=== PATIENT | male | born 1960 | race Caucasian/White ===

== ENCOUNTER → 2020-05-05 | Outpatient (CLI) | payer BC ==
--- NOTE | 2020-05-05 14:09 | XR ---
Cervical spine HISTORY: M 79.609 6 views of the cervical spine There is a retrolisthesis grade 1 C5-C6. Loss of disc height is present at C5-6. There is multilevel facet arthropathy. Atherosclerotic calcifications present within the carotid arteries. Foraminal encr oachment is present bilaterally C5-6. IMPRESSION: Degenerative disc disease and facet arthropathy.
== END | disposition home or self-care (01) ==
LOC: RADXRMAIN 13:10
PROVIDERS: ATTEND Family Medicine
DX: M50.30 Other cervical disc degeneration, unspecified cervical region (principal); M47.812 Spondylosis without myelopathy or radiculopathy, cervical region
CPT/HCPCS: 72050

== ENCOUNTER → 2020-06-25 | Outpatient (CLI) | payer BC ==
--- NOTE | 2020-06-25 07:43 | MR ---
MRI CERVICAL SPINE: CLINICAL HISTORY: Neck pain. Diminished sensation in feet and hands are patient. TECHNIQUE: Multiplanar, multisequence imaging of the cervical spine is performed without IV contrast. COMPARISON: Outside cervical spine x-ray June 05, 2020 FINDINGS: Sagittal images of the cervical spine show the craniocervical junction to appear within nor mal limits. The cervical and upper thoracic spinal cord is normal in caliber and signal. Slight grad e 1 retrolisthesis of C5 on C6 with mild disc space narrowing at this level otherwise the vertebral b diana and intravertebral disk heights are normal. The bone marrow signal intensity is within normal li mits. Axial images C2-C3 level show right paracentral disc protrusion mildly facing anterior thecal sac axi al image 50. Patent bilateral neural foramina. Axial images at C3-C4 level shows some uncovertebral facet degenerative changes with broad-based righ t paracentral disc protrusion effacing anterior thecal sac, patent bilateral neural foramina. Axial images at C4-C5 level show central disc protrusion mildly effacing anterior thecal sac. Patent bilateral neural foramina. Axial images at C5-C6 level shows spondylolisthesis with broad-based posterior disc protrusion with u ncovertebral facet spurring, there is effacement of the anterior thecal sac and moderate to severe bi lateral neural foraminal narrowing axial image 25 for reference. Axial images at C6-C7 level shows a left paracentral disc protrusion mildly facing anterior thecal sa c, patent bilateral neural foramina. Axial images at C7-T1 level are within normal limits. IMPRESSION: Multilevel degenerative changes with greatest findings noted at C5-C6 level as detailed a tasneem.
== END | disposition home or self-care (01) ==
LOC: RADMRIMAIN 06:10
PROVIDERS: ATTEND Orthopaedic Surgery
DX: M47.812 Spondylosis without myelopathy or radiculopathy, cervical region (principal)
CPT/HCPCS: 72141

== ENCOUNTER → 2020-07-18 | Outpatient (CLI) | payer BC ==
[2020-07-18 13:25] LABS: Basophils % (A) 0 %; Eosinophils # (A) 0.2 k/uL (0-0.7); Eosinophils % (A) 2 %; HCT 44.1 % (39.0-53.0); HGB 13.9 gm/dL (13.0-17.5); Lymphocytes % (A) 18 %; MCH 30.4 pg (25.0-35.0); MCHC 31.5 g/dL (31.0-37.0); MCV 96.4 fL (80.0-100.0); Mean Platelet Volume 8.6; Monocytes # (A) 0.5 k/uL (0-1.0); Monocytes % (A) 5 %; Neutrophils % (A) 74 %; Platelet Count 152 k/uL (150-450); RBC 4.58 m/uL (4.30-5.90); RDW 14.2 % (11.5-15.5); WBC 10.9 k/uL (3.8-10.6)
== END | disposition home or self-care (01) ==
LOC: LABPAT 11:51
PROVIDERS: ATTEND Orthopaedic Surgery
DX: G56.01 Carpal tunnel syndrome, right upper limb (principal)
CPT/HCPCS: 36415; 80051; 85025

== ENCOUNTER 2020-07-30 09:33 | Day surgery (SDC) | payer BC ==
[2020-07-25 12:53] VITALS: BMI 41.5
[~2020-07-30 09:33] MED LIST: DEXAMETHASONE SOD PHOSPHATE 4 MG/ML 1 ML VIAL IV ONE; HYDROmorphone 0.5 MG/0.5 ML SYRINGE IVP PRN; LACTATED RINGERS 1,000 ML IV SCH; LIDOCAINE 1% (10MG/ML) FOR IV START INTRADERMA PRN; ONDANSETRON 4 MG/2 ML VIAL IVP ONE; Pre Op ABX Message 1 EACH MISC MISCELLANE ONE
[2020-07-30 10:02] VITALS: TEMP 97
--- NOTE | 2020-07-30 10:15 | P.HPOR ---
History of Present Illness H&P Date: 07/10/20 Chief Complaint: R CTS This 59 year old male presents today with bilateral upper extremity numbness for 3 months. He denies any specific injury. He states that his symptoms are worse on his right side. . 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 H e notes symptoms at night. He denies any significant neck pain. Patient is not taking any medication for pain. Patient is ambulating independently. He denies trouble with fine motor skills. Denies unstady gait. states no f/c/sob/cp at thie time. He represented after EMG and found to have Severe R CTS. Review of Systems 14 points review of systems completed and as stated in HPI, all other systems reviewed are negative. Past Medical History Past Medical History: Cancer, Hypertension Additional Past Medical History / Comment(s): MELANOMA, STATES NUMBNESS IN HANDS AND BURNING PAIN UP ARM., CERVICAL DISC DEGENERATION History of Any Multi-Drug Resistant Organisms: None Reported Past Surgical History: Heart Catheterization, Orthopedic Surgery Additional Past Surgical History / Comment(s): RIGHT ANKLE SURGERY X5 (HARDWARE REMOVED), LEFT ANKLE SURGERY X2, HEART CATH 2007 ([facility]), CYST ON TESTICLE , NODE DISECTION RIGHT LOWER EXTREMITY. Past Anesthesia/Blood Transfusion Reactions: No Reported Reaction, Motion Sickness Past Psychological History: No Psychological Hx Reported Smoking Status: Former smoker Past Alcohol Use History: Occasional Additional Past Alcohol Use History / Comment(s): QUIT SMOKING AGE 19, SMOKED 1 PPD . , STARTED AGE 15. Past Drug Use History: None Reported - Past Family History Mother Family Medical History: No Reported History Medications and Allergies Home Medications Medication Instructions Recorded Confirmed Type Aspirin [Adult Low Dose Aspirin EC] 81 mg PO DAILY 07/25/20 07/30/20 History Folic Acid 1 mg PO DAILY 07/25/20 07/30/20 History Metoprolol Succinate (ER) [Toprol 25 mg PO DAILY 07/25/20 07/30/20 History Xl] Multivit-Min/Folic/Vit K/Lycop 1 each PO DAILY 07/25/20 07/30/20 History [Men's Multivitamin Tablet] amLODIPine [Norvasc] 5 mg PO DAILY 07/25/20 07/30/20 History lisinopriL 20 mg PO DAILY 07/25/20 07/30/20 History Allergies Allergy/AdvReac Type Severity Reaction Status Date / Time No Known Allergies Allergy Verified 07/30/20 09:59 Physical Examination Osteopathic Statement: *. No significant issues noted on an osteopathic structural exam other than those noted in the History and Physical/Consult. PHYSICAL EXAM: GEN: AOX3, NAD VSS Inspection: [appears well and well nourished] Palpation: [no tennis palpation of the cervical spine pain with motion of the cervical spine] Motor: [5]/5 shoulder abd/EF/EE/WF/intrinsics her strength is decreased bilaterally [5]/5 DF/PF/EHL/FHL/HF/KE/KF Reflexes: 2/4 DTR all upper and LE Sensation intact to light touch in C5-T1 as well as L2-S1 distribution Cardoza's: [negative] Clonus: [negative] Babinski: [negative] cranial nerves II through XII are grossly intact Assessment and Plan Assessment: right carpal tunnel syndrome left carpal tunnel syndrome Plan: Orthopedic Surgery Risk Review Fred Dyson is a 60-year-old male presenting for evaluation of bilateral upper extremity pain as well as hand pain. It was my pleasure to have seen and examined Fred Dyson. In our visit today we have had a chance to go over subjective complaints, physical examination findings and treatments including the natural course history without intervention and various interventional options. His imaging demonstrates mild spondylotic disease at C5 6. No severe stenosis and myelomalacia. Right carpal tunnel syndrome is noted on EMG. On physical exam, Fred Dyson demonstraes positive Tinel's sign as well as carpal compression sign at the right carpal tunnel worse than the left, which is NV intact at this time. I have explained to the patient that this fracture needs stabilization. Based on the patients imaging, physical exam, and the rapid progression and disabling nature of her symptoms, at this time I recommend surgery in the form or a: Right carpal tunnel release I discussed the risk and benefits of this procedure at length with Fred Dyson. Questions were invited and answered, and the patient wishes to proceed as outlined below. Currently, I am recommendin. Right carpal tunnel release 2. Review of surgical risks and benefits as well as an educational packet on the proposed surgical procedure. Risks: All surgical procedures come with inherent risks, including those related to positioning, anesthesia, intraoperative findings, and postoperative co mplications. It is important to understand that surgery does not come with any guarantee of a successful outcome as complications and adverse events are always possible. The patient was given a handout discussing the surgical procedure and risks associated with the intervention, both of which were discussed with the patient. These risks include but are not limited to the following: - Experiencing same, different or even worse symptoms compared to before surgery. - Requiring further surgery or other forms of treatment presently or at some time in the future . - On an extreme but fortunately relatively rare basis severe complication such as blindness, stroke, heart attack, temporary and/or permanent nerve injury, paralysis, coma, or may occur, sometimes without known explanation. - Surgical complications may include but are not limited to risk of infection, fluid accumulation in the surgical dissection site, including a seroma or hematoma, that requires additional surgery, wound drainage, bleeding, new numbness or weakness, vision changes/loss, spinal fluid leakage, non-healing and/or infected incision, headaches, difficulty or inability to swallow, hoarseness, hemopneumothorax, pneumothorax, injury to nerves, spinal cord, blood vessels, lymphatics or other vital organs (i.e., bowel injury, injury to the great vessels); heterotopic bone formation; complications related to the hardware such as screws, rods, including misplaced hardware, device failure, hardware fracture/breakage, or hardware loosening; retained surgical instrumentations or devices and the need for further surgery. - Medical risks of the planned surgery include but are not limited to generalized Infections to the whole body or local areas outside of the surgical site (sepsis), heart attack, bleeding, anaphylaxis, meningitis, seizure, epilepsy, hearing loss, burn worthy, laceration of the head or other areas of the body, bruising, hypersensitivity of the skin, bladder over distension; allergic reaction; shoulder injury related to positioning; fat, blood and air clots to other areas of the body like heart, lungs, brain; failure of internal organs s uch as lungs, kidneys, liver and excessive bleeding. If blood transfusions are necessary, note that transfusions may cause intolerance reactions such as anaphylaxis or other complex reactions. Despite best efforts, the results of surgery might not heal in terms of bone, soft tissues such as skin, fascia, ligaments, and joints. [facility] is an educational center that serves as a training facility for physician assistants, nurses, orthopedic residents and fellows. Residents are physicians who are completing their surgical intensive training following medical school. They assist in the operating room with direct supervision of the attending surgeons. [place] are surgeons who have completed their training and eligible for board certification. They have opted for an elective year of more specialized training in their field. They assist in the operating room under the supervision of the attending surgeons. Physician assistants are medically trained surgical providers who function in the outpatient, inpatient, and operating room setting under the direct supervision of the attending surgeon. [facility] has multiple operating rooms with single and overlapping rooms running daily. They currently function under the required guidelines as produced by the [facility] with regards to the overlapping rooms and will continue to comply with changes to this policy as they occur. The requirements include and are complied with as follows: (1) the critical portions of the overlapping rooms will not occur at the same time, (2) the attending yara sician will be physically present during the critical portions of the procedure and immediately available during the entire case, and (3) a back-up attending is designated should the primary attending not be immediately available. The patient has had a chance to review all the listed information, has been given print outs detailing this information, and has had all his/her questions answered to their satisfaction. It was my pleasure to have seen and examined Fred Dyson. In our visit today we have had a chance to go over my understanding of our patient's current condition, the natural course history without intervention and various interventional options. Questions were invited and answered, and the patient wishes to proceed as outlined above. I have seen and examined the patient for 25 minutes and we have spent more than 50% of the time in repeat and detailed counseling about the patient's condition, its natural course history with out and as much as can be predicted with surgery and re-review of various surgical treatment options. In conclusion, Fred Dyson requested we proceed with the above suggested surgery and are willing to accept risks and limitations of the suggested surgery as nature of the disease process and our best attempts at treatment for the condition. Thank you again for allowing us to be part of your patient's care. Please don't hesitate to contact me if you have any further questions. Signed and authenticated by: Erik Lopez DO [facility]imally [facility]vasive Spine [facility] [address] [facility], [address] [address]
[2020-07-30] MEDS ORDERED: fentaNYL (PF) 50 MCG/ML 2 ML AMP ONE (10:54)
[2020-07-30] MEDS ORDERED: LIDOCAINE 1% INJ 10MG/ML (20 ML MDV) ONE ×2 (10:54)
[2020-07-30] MEDS ORDERED: KETOROLAC 15 MG/ML 1 ML VIAL ONE (10:54)
[2020-07-30] MEDS ORDERED: MIDAZOLAM 2 MG/2 ML VIAL ONE (10:54)
[2020-07-30] MEDS ORDERED: PROPOFOL 10 MG/ML 20 ML VIAL IV ONE (10:54)
[2020-07-30] MEDS ORDERED: BUPIVACAINE (PF) 0.5% 30 ML VIAL SQ ONE (11:14)
[2020-07-30] MEDS ORDERED: LIDOCAINE 1% INJ 10MG/ML (20 ML MDV) SQ ONE (11:14)
[2020-07-30 11:56] VITALS: RESP 16
[2020-07-30 12:09] VITALS: BP 129/83; PULSE 60
--- NOTE | 2020-07-30 14:43 | P.OP ---
Date of Procedure: 07/30/20 Preoperative Diagnosis: RIGHT carpal tunnel syndrome Postoperative Diagnosis: Same Procedure(s) Performed: Right Carpal tunnel release Implants: None Anesthesia: local Surgeon: Erik Lopez Estimated Blood Loss (ml): 10 IV fluids (ml): 400 Urine output (ml): 0 Pathology: none sent Condition: stable Disposition: PACU Indications for Procedure: 60 yo male with symptoms of RIGHT hand pain, numbness tingling for several months refractory to conservative measures. EMG showed CTS on RIGHT>L and MRI of C spine shows mild C5-6 disc bulging. Pt elected to have CTR due to symptoms and no neck pain at this time. He was evaluated in the office several times and at pre op appointments was comfortable with proceeding to surgery. Operative Findings: Median nerve compression at the Carpal tunnel on the RIGHT. Description of Procedure: The patient was seen and examined in the preoperative area. All preoperative protocols were followed. Informed consent was obtained risks and benefits of the procedure were discussed at length. Risks including bleeding infection damage to the surrounding tissue and risk of reoperation were discussed with the patient. Risk of anesthesia up to and including was a discussed with the patient. These are outlined in the risk reviewed. They were willing to accept these risks and all of the risks of surgery. The patient was given a weight- based dose of antibiotics in the form of 2 g Ancef IVPB 1. The patient was seen and evaluated by the anesthesia team who deemed them fit for surgery. The site was marked, the patient was willing to proceed with the procedure. The patient was transferred to the operative suite by the Department of anesthesia. There were then drifted off to sleep by the department of anesthesia and sedation with local anesthetic of the right hand anesthesia was used. Once adequate anesthesia had been obtained the patient was carefully transferred to the operative bed. All bony prominences were padded accordingly. SCDs were placed on the nonoperative lower extremities. Arms were well padded. And right arm was exposed target was placed on the patient's right upper arm and well-padded 10:15 misplaced roundness. Arm placed on arm board on the right Preoperative briefing was done with the operative team and everyone was ready for the procedure to start. The patients right arm and hand was then prepped and draped in the normal sterile fashion. Timeout was then performed and all parties in agreement with the procedure to be performed. Skin marker was used to álvaro an incision over the carpal tunnel and the patient's right hand ulnar aspect of the right ring finger proximal to Bob's cardinal line. Esmarch was then placed and tourniquet was inflated to 250 mmHg after exsanguination. Skin knife was then used to dissect over this is a previously by marked incision down to identify the palmar fascia. Blunt dissection was then taken down to the transverse carpal ligament which was identified. Inside knife was then used to incise a channel carpal ligament longitudinally. The median nerve was identified. Tenotomy was then used to complete the dissection distally of the carpal ligament release it taking care to protect the palmar arch. This was repeated proximally until complete release of the carpal ligament had been achieved. Median nerve was then inspected and was in good health. The wound was copiously irrigated with normal sterile saline tourniquet was dropped after 9 minutes and any superficial bleeding was cauterized. Wound was then closed with 3-0 Vicryl subcuticular region followed by 3-0 nylon in the skin wound edges approximated very well with no complications. Was then cleaned and dressed sterilely with sterile Adaptic 4 x 4's web roll the patient was placed in a volar splint which was well-padded well molded. This was then overwrapped with an Adán wrap. The patient was then transferred back to their hospital bed. There were awakened by department of anesthesia having tolerated the procedure very well with no complications. The patient was then transported to the postoperative care unit in stable condition.
== END 2020-07-30 12:30 | disposition home or self-care (01) ==
LOC: OR 09:33
PROVIDERS: ATTEND Orthopaedic Surgery
DX: G56.03 Carpal tunnel syndrome, bilateral upper limbs (principal); M50.222 Other cervical disc displacement at C5-C6 level; I10 Essential (primary) hypertension; Z97.2 Presence of dental prosthetic device (complete) (partial); Z79.82 Long term (current) use of aspirin; Z79.899 Other long term (current) drug therapy; Z87.891 Personal history of nicotine dependence; Z85.820 Personal history of malignant melanoma of skin; Z98.890 Other specified postprocedural states
CPT/HCPCS: 93005; 64721; J2250; J1100; J2405; J2001; J3010; J1885; J2704

== ENCOUNTER 2021-01-19 15:17 | Emergency (ER) | payer BC ==
[2021-01-19 15:28] VITALS: TEMP 98.9
[2021-01-19] MEDS ORDERED: methylPREDNISolone SOD SUCCI 125 MG/2 ML VIAL IV STA (15:38)
[2021-01-19] MEDS ORDERED: diphenhydrAMINE 50 MG/ML 1 ML VIAL IVP STA (15:38)
[2021-01-19] MEDS ORDERED: FAMOTIDINE 20 MG/2 ML VIAL IV STA (15:38)
[2021-01-19] MEDS ORDERED: SODIUM CHLORIDE 0.9% 1,000 ML IV STA (15:38)
--- NOTE | 2021-01-19 16:06 | ED ---
Allergic Reaction HPI - General Chief complaint: Allergic Reaction Stated complaint: Stung by bee,itchy Time Seen by Provider: 01/19/21 15:38 Source: patient Mode of arrival: wheelchair Limitations: no limitations - History of Present Illness Initial Comments: Patient is a 60-year-old male presenting to the emergency Department with complaints of an ALLERGIC reaction. Patient states about 45 minutes prior to arrival, he was stung by a bee on the back of his left upper arm. He started having intense itching all over and now has some mildly swollen lips and swollen tonsil he came to the ER. He has never had this type of reaction before. He denies any chest pain or shortness of breath, he denies any trouble breathing at this time. He feels extremely itchy and uncomfortable. He denies any nausea or vomiting at this time. He has no further complaints. - Related Data Home Medications Medication Instructions Recorded Confirmed Aspirin [Adult Low Dose Aspirin EC] 81 mg PO DAILY 07/25/20 07/30/20 Folic Acid 1 mg PO DAILY 07/25/20 07/30/20 Metoprolol Succinate (ER) [Toprol 25 mg PO DAILY 07/25/20 07/30/20 Xl] Multivit-Min/Folic/Vit K/Lycop 1 each PO DAILY 07/25/20 07/30/20 [Men's Multivitamin Tablet] amLODIPine [Norvasc] 5 mg PO DAILY 07/25/20 07/30/20 lisinopriL 20 mg PO DAILY 07/25/20 07/30/20 Previous Rx's Medication Instructions Recorded Acetaminophen-Codeine 300-30mg 1 tab PO Q4H PRN 3 Days #18 tablet 07/30/20 [Tylenol w/codeine #3] EPINEPHrine (Auto Inject) [Epipen] 0.3 mg IM ONCE PRN #1 pen 01/19/21 predniSONE 50 mg PO DAILY #5 tab 01/19/21 Allergies Allergy/AdvReac Type Severity Reaction Status Date / Time No Known Allergies Allergy Verified 01/19/21 15:28 Review of Systems ROS Statement: Those systems with pertinent positive or pertinent negative responses have been documented in the HPI. ROS Other: All systems not noted in ROS Statement are negative. Past Medical History Past Medical History: Hypertension History of Any Multi-Drug Resistant Organisms: None Reported Past Surgical History: Orthopedic Surgery Past Psychological History: No Psychological Hx Reported Smoking Status: Never smoker Past Alcohol Use History: Occasional Past Drug Use History: None Reported General Exam - General Exam Comments Initial Comments: GENERAL: Patient is well-developed and well-nourished. Patient is nontoxic and in mild distress. HEAD: Atraumatic, normocephalic. EYES: Pupils equal round and reactive to light, extraocular movements intact, sclera anicteric, conjunctiva are normal. Eyelids were unremarkable. ENT: TMs normal, nares patent, oropharynx clear without exudates. Moist mucous membranes. Mild enlargement of his tongue, very mild lip swelling. NECK: Normal range of motion, supple without lymphadenopathy or JVD. LUNGS: Unlabored respirations. Breath sounds clear to auscultation bilaterally and equal. No wheezes rales or rhonchi. HEART: Slightly tachycardia rate and rhythm without murmurs, rubs or gallops. ABDOMEN: Soft, nontender, normoactive bowel sounds. No guarding, no rebound. No masses appreciated. : Deferred MUSCULOSKELETAL: Normal extremities with adequate strength and normal range of motion, no pitting or edema. No clubbing or cyanosis. NEUROLOGICAL: Patient is alert and oriented x 3. Normal speech, normal gait. PSYCH: Normal mood, normal affect. SKIN: Warm, Dry, normal turgor. Patient has developing hives noted to the bilateral arms, lower legs, and on his neck. Limitations: no limitations Course Vital Signs 01/19/21 15:24 Temperature 98.9 F Pulse Rate 103 H Respiratory 25 H Rate Blood Pressure 144/101 O2 Sat by Pulse 96 Oximetry Medical Decision Making - Medical Decision Making Patient is a 60-year-old male presenting for an ALLERGIC reaction to a bee sting that happened about 45 minutes prior to arrival. He's never had this sort of reaction. He is complaining of intense itching, hives and some mild swelling of his lip and tongue. He is in no acute distress, no trouble breathing, no nausea or vomiting. Patient was quickly given Benadryl, so Medrol and Pepcid. Patient was reexamined about 30 minutes later, he reports improvement of symptoms, hives are decreasing. He is in no acute distress. Patient was observed in the ER for proximally 2 hours, he reports continued improvement in his symptoms, no acute distress, no trouble breathing, lip swelling is decreasing. Patient is stable for discharge. I did recommend continuing with Benadryl at nighttime for any further itching or hives. I will continue him on steroids and prescribe him an EpiPen. Patient and patient's are in agreement with this plan of care. Patient is stable for discharge. Patient is in agreement with this plan of care. Return parameters were discussed with the patient and they verbalized understanding. Case discussed with Dr. Avelar. Disposition Clinical Impression: Allergic reaction to insect sting Disposition: HOME SELF-CARE Condition: Stable Instructions (If sedation given, give patient instructions): Urticaria (ED) Additional Instructions: Please return to the Emergency Department if symptoms worsen or any other concerns. Please continue steroids, starting tomorrow. May take Benadryl every 8 hours for itching or worsening hives. Also prescribed an EpiPen for any future bee stings to use as needed for severe reaction. Please follow-up with primary care physician. Prescriptions: EPINEPHrine (Auto Inject) [Epipen] 0.3 mg IM ONCE PRN #1 pen PRN Reason: Anaphylaxis predniSONE 50 mg PO DAILY #5 tab Is patient prescribed a controlled substance at d/c from ED?: No Referrals: Austen Hooper DO [Primary Care Provider] - 1-2 days Time of Disposition: 17:18
[2021-01-19 17:27] VITALS: BP 136/83; PULSE 71; RESP 18
== END 2021-01-19 17:35 | disposition home or self-care (01) ==
LOC: EC 15:17
DX: T63.441A Toxic effect of venom of bees, accidental (unintentional), initial encounter (principal); I10 Essential (primary) hypertension; Z79.52 Long term (current) use of systemic steroids; Z79.82 Long term (current) use of aspirin; Z79.899 Other long term (current) drug therapy
CPT/HCPCS: 99282; 96374; 96375 ×2; 96361 ×2; J1200; J2930

== ENCOUNTER → 2023-09-14 | Outpatient (CLI) | payer OTHER ==
--- NOTE | 2023-09-14 11:54 | US ---
EXAMINATION TYPE: US bladder DATE OF EXAM: 09/14/2023 COMPARISON: NONE CLINICAL INDICATION: Male, 63 years old with history of R82.89 OTHER ABN FINDINGS ON CYTOLOGY AND HIS TOLOGY; gross hematuria last week, started antibiotic and it is improving, h/o renal stones, patient feels he passed renal stone yesterday TECHNIQUE: Multiple sonographic images of the bladder are obtained. FINDINGS: CANS VACUUM TESTER NOTES: Bladder scan produces 2.8 x 2.7cm cluster of stones noted midline, twinkle artifac t seen Color Doppler performed to assess ureteral jets. Bilateral Jets seen: yes IMPRESSION: Complex lesion with cluster of stones near the base of bladder. Not entirely excluded associated poly poid soft tissue mass as part of this complex
== END | disposition home or self-care (01) ==
LOC: RADUSWWP 10:24
PROVIDERS: ATTEND Family Medicine
DX: N21.0 Calculus in bladder (principal); N28.89 Other specified disorders of kidney and ureter; R82.89 Other abnormal findings on cytological and histological examination of urine; R31.0 Gross hematuria
CPT/HCPCS: 76857

== ENCOUNTER → 2023-09-23 | Outpatient (CLI) | payer MEDICARE ==
[2023-09-23 11:36] LABS: African American GFR (CKD) >90 (>60 ml/min/1.73 sqM); Blood Urea Nitrogen 21 mg/dL (9-20); Non-African American GFR(CKD) >90 (>60 ml/min/1.73 sqM)
--- NOTE | 2023-09-26 10:26 | CT ---
EXAMINATION TYPE: CT urogram wo/w con CT DLP: 5039.6 mGycm, Automated exposure control for dose reduction was used. DATE OF EXAM: 09/23/2023 12:32 PM COMPARISON: . CT abdomen pelvis most recent from CLINICAL INDICATION:Male, 63 years old with history of R31.0 GROSS HEMATURIA; PHH, gross hematuria TECHNIQUE: Urogram with imaging of the abdomen and pelvis. Coronal and sagittal reformats were performed. 2D and 3D reconstructions are performed to assist visualization of the urinary tract on a separate workstat ion. Contrast used:100 mL of Isovue 300 without and with IV Contrast, Oral contrast used: None. FINDINGS: LOWER CHEST: No significant findings. GENITOURINARY: RIGHT KIDNEY AND URETER: No calculi. No hydronephrosis or hydroureter. Several tiny type I Bosniak No solid renal mass or other lesions. No urothelial lesions: no filling defect, dilation, stricture o r wall thickening. LEFT KIDNEY AND URETER: No calculi. No hydronephrosis or hydroureter. Several small Bosniak 1 and Olayinka niak 2 renal cysts. No solid renal mass or other lesions. No urothelial lesions: no filling defect, d ilation, stricture or wall thickening. URINARY BLADDER: Ureteral jets are seen. Estimated 2 cm urinary bladder wall mass is identified in th e superior margin of the bladder. REPRODUCTIVE: Unremarkable. ABDOMEN LIVER: Unremarkable. GALLBLADDER AND BILE DUCTS: Unremarkable PANCREAS: Unremarkable. SPLEEN: Unremarkable. ADRENAL GLANDS: Unremarkable. STOMACH AND BOWEL: Unremarkable. No evidence of bowel obstruction. PERITONEUM: No evidence of pneumoperitoneum, free fluid, or adenopathy. VASCULATURE: No evidence of aortic aneurysm. MUSCULOSKELETAL: No acute osseous abnormalities LYMPH NODES: No gross evidence for lymphadenopathy. SOFT TISSUE/ABDOMINAL WALL: Unremarkable IMPRESSION: Suspicious for 2 cm bladder wall mass, potential transitional cell carcinoma No evidence of urolithiasis or renal/urothelial neoplasm. Small benign renal cysts which require no follow-up
== END | disposition home or self-care (01) ==
LOC: RADCTMAIN 10:44
PROVIDERS: ATTEND Urology
DX: N28.1 Cyst of kidney, acquired (principal); R31.0 Gross hematuria
CPT/HCPCS: 82565; 84520; 74178; 36415; 74400; Q9967

== ENCOUNTER 2023-11-05 18:39 | Emergency (ER) | payer MEDICARE ==
[2023-11-05 19:17] VITALS: TEMP 98.6
--- NOTE | 2023-11-05 19:32 | ED ---
General Adult HPI - General Chief complaint: Shortness of Breath Stated complaint: Difficulty breathing, pain when breathing Time Seen by Provider: 11/05/23 18:58 Source: patient Mode of arrival: wheelchair Limitations: no limitations - History of Present Illness Initial comments: This patient is a 63-year-old man who arrives to have evaluation for pleuritic right-sided chest pain that has been going on and getting progressively worse for the past 2 days. The patient reports on the day prior to developing this he had a cystoscopic resection of a bladder tumor at [facility]. The patient then noticed that he was having pain when he tried to take a deep breath. The pain seems to be in the right thoracic mid back and also rating around the side. It is worse with taking deep breath, better if he does not breathe deeply. He has not noted fever or chills. He does have occasional nonproductive cough. The patient does have indwelling catheter and has not noted a change in urine, which has been clear since the procedure. No nausea or vomiting. No diaphoresis. Onset/Timin -: days(s) Location: chest, back Radiation: non-radiation Quality: stabbing, aching Consistency: intermittent Improves with: none Worsens with: other (Aspiration) Associated Symptoms: cough Treatments Prior to Arrival: none - Related Data Home Medications Medication Instructions Recorded Confirmed Folic Acid 1 mg PO DAILY 07/25/20 11/18/23 Metoprolol Succinate (ER) [Toprol 25 mg PO DAILY 07/25/20 11/18/23 Xl] amLODIPine [Norvasc] 5 mg PO DAILY 07/25/20 11/18/23 lisinopriL 20 mg PO DAILY 07/25/20 11/18/23 Acetaminophen Tab [Tylenol Tab] 500 mg PO Q4H PRN 11/05/23 11/18/23 Sennosides [Senokot] 17.2 mg PO DAILY 11/05/23 11/18/23 allopurinoL [Zyloprim] 100 mg PO DAILY 11/05/23 11/18/23 Aspirin EC [Ecotrin Low Dose] 81 mg PO DAILY 11/18/23 11/18/23 Previous Rx's Medication Instructions Recorded Ibuprofen [Motrin] 600 mg PO Q8HR PRN #20 tab 11/05/23 Allergies Allergy/AdvReac Type Severity Reaction Status Date / Time No Known Allergies Allergy Verified 11/18/23 19:51 Review of Systems ROS Statement: Those systems with pertinent positive or pertinent negative responses have been documented in the HPI. ROS Other: All systems not noted in ROS Statement are negative. Constitutional: Denies: fever, chills, weakness Respiratory: Reports: cough, dyspnea Cardiovascular: Reports: as per HPI, chest pain. Denies: orthopnea, edema, syncope Gastrointestinal: Denies: abdominal pain, nausea, vomiting Genitourinary: Denies: dysuria, hematuria Musculoskeletal: Reports: as per HPI, back pain Skin: Denies: rash Neurological: Denies: headache, weakness, numbness Past Medical History Past Medical History: Hypertension History of Any Multi-Drug Resistant Organisms: None Reported Past Surgical History: Orthopedic Surgery Additional Past Surgical History / Comment(s): kidney tumor removal Past Psychological History: No Psychological Hx Reported Smoking Status: Never smoker Past Alcohol Use History: Occasional Past Drug Use History: None Reported General Exam Limitations: no limitations General appearance: alert, in no apparent distress Head exam: Present: atraumatic, normocephalic Eye exam: Present: normal appearance. Absent: scleral icterus, conjunctival injection Neck exam: Present: normal inspection Respiratory exam: Present: normal lung sounds bilaterally, other (Patient is splinting his breathing). Absent: respiratory distress, wheezes, rales, rhonchi, stridor, chest wall tenderness, accessory muscle use Cardiovascular Exam: Present: regular rate, normal rhythm, normal heart sounds. Absent: systolic murmur, diastolic murmur, rubs, gallop GI/Abdominal exam: Present: soft. Absent: distended, tenderness, guarding, rebound, rigid, mass Extremities exam: Present: normal inspection, normal capillary refill. Absent: pedal edema, calf tenderness Back exam: Present: normal inspection. Absent: CVA tenderness (R), CVA tenderness (L) Neurological exam: Present: alert Skin exam: Present: warm, dry, intact, normal color. 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 sent in by a medical professional or institution (, PA, RESEARCH PHLEBOTOMIST, urgent care, hospital, or snf...) When possible be specific @ -[No] Did you speak to anyone other than the patient for history (EMS, parent, family, police, friend...)? What history was obtained from this source @ -[No] Did you review nursing and triage notes (agree or disagree)? Why? @ -[I reviewed and agree with nursing and triage notes] Were old charts reviewed (outside hosp., previous admission, EMS record, old EKG, old radiological studies, urgent care reports/EKG's, snf records)? Report findings @ -[No old charts were reviewed] Differential Diagnosis (chest pain, altered mental status, abdominal pain women, abdominal pain men, vaginal bleeding, weakness, fever, dyspnea, syncope, headache, dizziness, GI bleed, back pain, seizure, CVA, palpatations, mental health, musculoskeletal)? @ -[Differential Chest Pain: Stable Angina, Unstable Angina, STEMI, NSTEMI Aortic Dissection, Pneumothorax, Musculoskeletal, Esophageal Spasm GERD, Cholecystitis, Pancreatitis, Zoster, this is not meant to be an all-inclusive list. EKG interpreted by me (3pts min.). @ -[I interpreted as above] X-rays interpreted by me (1pt min.). @ -[None done] CT interpreted by me (1pt min.). @ -I interpreted as above U/S interpreted by me (1pt. min.). @ -[None done] What testing was considered but not performed or refused? (CT, X-rays, U/S, labs)? Why? @ -[None] What meds were considered but not given or refused? Why? @ -[None] Did you discuss the management of the patient with other professionals (professionals i.e. , PA, RESEARCH PHLEBOTOMIST, lab, RT, psych nurse, social work coordinator, professor of communication, teacher, railroad police officer, shoe caser)? Give summary @ -[No] Was smoking cessation discussed for >3mins.? @ -[No] Was critical care preformed (if so, how long)? @ -[No] Were there social determinants of health that impacted care today? How? (Homelessness, low income, unemployed, alcoholism, drug addiction, transportation, low edu. Level, literacy, decrease access to med. care, correction, rehab)? @ -[No] Was there de-escalation of care discussed even if they declined (Discuss DNR or withdrawal of care, Hospice)? DNR status @ -[No] What co-morbidities impacted this encounter? (DM, HTN, Smoking, COPD, CAD, Cancer, CVA, ARF, Chemo, Hep., AIDS, mental health diagnosis, sleep apnea, morbid obesity)? @ -[History of cancer Was patient admitted / discharged? Hospital course, mention meds given and route, prescriptions, significant lab abnormalities, going to OR and other pertinent info. @ -[Patient is 63-year-old man presenting to have evaluation of pleuritic chest pain. Given the history of cancer, the patient had CT scan of the chest that is negative for acute pulmonary embolism. Discussed appropriate further care and follow-up as well as return parameters. Discussed the incidental finding of splenic aneurysm patient to have follow-up related. Undiagnosed new problem with uncertain prognosis? @ -[No] Drug Therapy requiring intensive monitoring for toxicity (Heparin, Nitro, Insu melvina, Cardizem)? @ -[No] Were any procedures done? @ -[No] Diagnosis/symptom? @ -[Acute pleuritis Acute, or Chronic, or Acute on Chronic? @ -[Acute Uncomplicated (without systemic symptoms) or Complicated (systemic symptoms)? @ -[Uncomplicated Side effects of treatment? @ -[No] Exacerbation, Progression, or Severe Exacerbation? @ -[No] Poses a threat to life or bodily function? How? (Chest pain, [place], [place], pneumonia, PE, COPD, DKA, ARF, appy, cholecystitis, CVA, Diverticulitis, Homicidal, Ambrosio icidal, threat to staff... and all critical care pts) @ -[No] - Lab Data Result diagrams: 11/05/23 19:30 11/05/23 19:30 Lab Results 11/05/23 11/05/23 11/05/23 Range/Units 19:30 19:30 19:30 WBC 11.8 H (3.8-10.6) k/uL RBC 5.19 (4.30-5.90) m/uL Hgb 15.5 (13.0-17.5) gm/dL Hct 48.4 (39.0-53.0) % MCV 93.2 (80.0-100.0) fL MCH 29.8 (25.0-35.0) pg MCHC 32.0 (31.0-37.0) g/dL RDW 13.6 (11.5-15.5) % Plt Count 171 (150-450) k/uL MPV 9.6 Neutrophils % 71 % Lymphocytes % 19 % Monocytes % 7 % Eosinophils % 2 % Basophils % 0 % Neutrophils # 8.4 H (1.3-7.7) k/uL Lymphocytes # 2.2 (1.0-4.8) k/uL Monocytes # 0.9 (0-1.0) k/uL Eosinophils # 0.2 (0-0.7) k/uL Basophils # 0.0 (0-0.2) k/uL PT 11.2 (10.0-12.5) sec INR 1.0 (<1.2) APTT 25.1 (22.0-30.0) sec Sodium 143 (137-145) mmol/L Potassium 4.0 (3.5-5.1) mmol/L Chloride 110 H (98-107) mmol/L Carbon Dioxide 23 (22-30) mmol/L Anion Gap 10 mmol/L BUN 21 H (9-20) mg/dL Creatinine 0.78 (0.66-1.25) mg/dL Est GFR (CKD-EPI)AfAm >90 (>60 ml/min/1.73 sqM) Est GFR (CKD-EPI)NonAf >90 (>60 ml/min/1.73 sqM) Glucose 107 H (74-99) mg/dL Calcium 9.4 (8.4-10.2) mg/dL Magnesium 1.9 (1.6-2.3) mg/dL Total Bilirubin 0.8 (0.2-1.3) mg/dL AST 27 (17-59) U/L ALT 34 (4-49) U/L Alkaline Phosphatase 85 (38-126) U/L Troponin I (0.000-0.034) ng/mL Total Protein 7.4 (6.3-8.2) g/dL Albumin 4.5 (3.5-5.0) g/dL 11/05/23 Range/Units 19:30 WBC (3.8-10.6) k/uL RBC (4.30-5.90) m/uL Hgb (13.0-17.5) gm/dL Hct (39.0-53.0) % MCV (80.0-100.0) fL MCH (25.0-35.0) pg MCHC (31.0-37.0) g/dL RDW (11.5-15.5) % Plt Count (150-450) k/uL MPV Neutrophils % % Lymphocytes % % Monocytes % % Eosinophils % % Basophils % % Neutrophils # (1.3-7.7) k/uL Lymphocytes # (1.0-4.8) k/uL Monocytes # (0-1.0) k/uL Eosinophils # (0-0.7) k/uL Basophils # (0-0.2) k/uL PT (10.0-12.5) sec INR (<1.2) APTT (22.0-30.0) sec Sodium (137-145) mmol/L Potassium (3.5-5.1) mmol/L Chloride (98-107) mmol/L Carbon Dioxide (22-30) mmol/L Anion Gap mmol/L BUN (9-20) mg/dL Creatinine (0.66-1.25) mg/dL Est GFR (CKD-EPI)AfAm (>60 ml/min/1.73 sqM) Est GFR (CKD-EPI)NonAf (>60 ml/min/1.73 sqM) Glucose (74-99) mg/dL Calcium (8.4-10.2) mg/dL Magnesium (1.6-2.3) mg/dL Total Bilirubin (0.2-1.3) mg/dL AST (17-59) U/L ALT (4-49) U/L Alkaline Phosphatase (38-126) U/L Troponin I <0.012 (0.000-0.034) ng/mL Total Protein (6.3-8.2) g/dL Albumin (3.5-5.0) g/dL Disposition Clinical Impression: Pleuritis Disposition: HOME SELF-CARE Condition: Good Instructions (If sedation given, give patient instructions): Pleurisy (ED) Prescriptions: Ibuprofen [Motrin] 600 mg PO Q8HR PRN #20 tab PRN Reason: Pain Is patient prescribed a controlled substance at d/c from ED?: No Referrals: Max Doty MD [Primary Care Provider] - 1-2 days
[2023-11-05 19:53] LABS: Basophils % (A) 0 %; Eosinophils # (A) 0.2 k/uL (0-0.7); Eosinophils % (A) 2 %; HCT 48.4 % (39.0-53.0); HGB 15.5 gm/dL (13.0-17.5); Lymphocytes # (A) 2.2 k/uL (1.0-4.8); Lymphocytes % (A) 19 %; MCH 29.8 pg (25.0-35.0); MCV 93.2 fL (80.0-100.0); Mean Platelet Volume 9.6; Monocytes # (A) 0.9 k/uL (0-1.0); Monocytes % (A) 7 %; Neutrophils # (A) 8.4 k/uL (1.3-7.7); Neutrophils % (A) 71 %; Platelet Count 171 k/uL (150-450); RBC 5.19 m/uL (4.30-5.90); RDW 13.6 % (11.5-15.5); WBC 11.8 k/uL (3.8-10.6)
[2023-11-05 20:03] LABS: ALT 34 U/L (4-49); AST 27 U/L (17-59); African American GFR (CKD) >90 (>60 ml/min/1.73 sqM); Albumin 4.5 g/dL (3.5-5.0); Alkaline Phosphatase 85 U/L (38-126); Anion Gap 10 mmol/L; Blood Urea Nitrogen 21 mg/dL (9-20); Calcium 9.4 mg/dL (8.4-10.2); Carbon Dioxide 23 mmol/L (22-30); Chloride 110 mmol/L (98-107); Glucose 107 mg/dL (74-99); Magnesium 1.9 mg/dL (1.6-2.3); Non-African American GFR(CKD) >90 (>60 ml/min/1.73 sqM); Sodium 143 mmol/L (137-145); Total Bilirubin 0.8 mg/dL (0.2-1.3); Total Protein 7.4 g/dL (6.3-8.2)
[2023-11-05 20:11] LABS: Partial Thromboplastin Time 25.1 sec (22.0-30.0); Prothrombin Time 11.2 sec (10.0-12.5)
--- NOTE | 2023-11-05 23:37 | CT ---
EXAMINATION TYPE: CT angio chest CT DLP: 764.6 mGycm, Automated exposure control for dose reduction was used. DATE OF EXAM: 11/05/2023 8:57 PM COMPARISON: CLINICAL INDICATION:Male, 63 years old with history of pleuritic R chest pain. Poss PE; pt c.o of sob onset today, pt reports having a tumor removed off his bladder on tuesday pt reports stabbing pain in middle back pt denies any blood in urine and recent fevers TECHNIQUE/CONTRAST: CTA scan of the thorax is performed with IV Contrast, patient injected with 100ML mL of Isovue 370, M IP images are created and reviewed these are created on a separate workstation.. FINDINGS: There is adequate contrast bolus and timing. PULMONARY ARTERIES: There is no evidence for a filling defect within the pulmonary vasculature to sug gest acute pulmonary embolism. Pulmonary trunk is normal in size. Trunk measures 2.7 CM. AORTA: Mild mixed atherosclerotic disease.. Ascending aorta is 3.6 CM, descending is 2.8 CM. No evid ence of dissection. HEART: Mild cardiomegaly.Moderate coronary artery calcification and/or stents. No appreciable perica rdial effusion. LOWER NECK: No significant findings. MEDIASTINUM: Mildly enlarged right anterior tracheal lymph node or iron conglomerate with short axi s 1.4 cm. Otherwise no enlarged nodes by CT criteria. SOFT TISSUES/AXILLA: Unremarkable soft tissues. No axillary adenopathy. LUNGS/ PLEURA: Mild dependent atelectasis in the lower lobes. Otherwise unremarkable. No pleural effu lisandro or pneumothorax. AIRWAY: Central airways are patent. MUSCULOSKELETAL: No acute osseous abnormality. Mild disc degeneration changes are present throughout the included thoracolumbar spine. UPPER ABDOMEN: Mildly thickened and nodular appearance to the adrenals, likely adenomatoid changes. S plenic artery 1.7 cm aneurysm. Question slightly scalloped margin of the liver, can be seen with christine y cirrhosis. IMPRESSION: 1. No evidence of pulmonary embolism. 2. No other acute chest process demonstrated. 3. Nonspecific, single mildly enlarged right paratracheal lymph node. 4. 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 5. Other chronic and likely incidental findings, as described above.
[2023-11-05] MEDS: HYDROmorphone 0.5 MG/0.5 ML SYRINGE IVP STA (23:49)
[2023-11-05] MEDS: KETOROLAC 15 MG/ML 1 ML VIAL IVP STA (23:53)
[2023-11-06 01:02] VITALS: BP 155/89; PULSE 65; RESP 18
== END 2023-11-06 00:05 | disposition home or self-care (01) ==
LOC: EC 18:39
DX: R09.1 Pleurisy (principal)
CPT/HCPCS: 36415; 93005; 80053; 83735; 84484; 85025; 85610; 85730; 71275; 99285; 96374; 96375; J1885; J1170; Q9967

== ENCOUNTER 2023-11-18 14:15 | Emergency (ER) | payer MEDICARE ==
--- NOTE | 2023-11-18 14:24 | ED ---
Male Urogenital HPI - General Source: patient, RN notes reviewed Mode of arrival: ambulatory Limitations: no limitations <Rosalba Booth - Last Filed: 11/18/23 14:22> <Tejas Avina - Last Filed: 11/18/23 19:10> - General Chief complaint: Urogenital Stated complaint: Urogenital Time Seen by Provider: 11/18/23 14:23 - History of Present Illness Initial comments: Quick Note: This is a 63-year-old male who presents to the emergency department for hematuria. Patient has bladder cancer and has had increased blood in his urine. States that he is also having very large clots. He was advised to come to the emergency department to have a catheter placed. Reports associated suprapubic pressure. (Rosalba Booth) Dictation was produced using [employer] dictation software. please excuse any grammatical, word or spelling errors. Chief Complaint: 63-year-old male presents with urinary tension History of Present Illness: Patient 63-year-old male he has history of bladder cancer. Earlier this month he had bladder surgery. States that he is recovering well. Noticed that his urine was bloody for the last 24 hours. Suddenly started to have some pressure was unable to urinate and having suprapubic pressure. Patient [place] any fever, chills or night sweats. The ROS documented in this emergency department record has been reviewed and confirmed by me. Those systems with pertinent positive or negative responses have been documented in the HPI. All other systems are other negative and/or noncontributory. (Tejas Avina) - Related Data Home Medications Medication Instructions Recorded Confirmed Folic Acid 1 mg PO DAILY 07/25/20 11/05/23 Metoprolol Succinate (ER) [Toprol 25 mg PO DAILY 07/25/20 11/05/23 Xl] amLODIPine [Norvasc] 5 mg PO DAILY 07/25/20 11/05/23 lisinopriL 20 mg PO DAILY 07/25/20 11/05/23 Acetaminophen Tab [Tylenol Tab] 500 mg PO Q4H PRN 11/05/23 11/05/23 Ciprofloxacin HCl [Cipro] 500 mg PO BID 11/05/23 11/05/23 Sennosides [Senokot] 17.2 mg PO DAILY 11/05/23 11/05/23 allopurinoL [Zyloprim] 100 mg PO DAILY 11/05/23 11/05/23 Previous Rx's Medication Instructions Recorded Ibuprofen [Motrin] 600 mg PO Q8HR PRN #20 tab 11/05/23 Allergies Allergy/AdvReac Type Severity Reaction Status Date / Time No Known Allergies Allergy Verified 11/18/23 14:56 Review of Systems ROS Other: All systems not noted in ROS Statement are negative. <Rosalba Booth - Last Filed: 11/18/23 14:22> ROS Other: All systems not noted in ROS Statement are negative. <Tejas Avina - Last Filed: 11/18/23 19:10> ROS Statement: Those systems with pertinent positive or pertinent negative responses have been documented in the HPI. Past Medical History Past Medical History: Hypertension History of Any Multi-Drug Resistant Organisms: None Reported Past Surgical History: Orthopedic Surgery Additional Past Surgical History / Comment(s): kidney tumor removal Past Psychological History: No Psychological Hx Reported Smoking Status: Never smoker Past Alcohol Use History: Occasional Past Drug Use History: None Reported <Rosalba Booth - Last Filed: 11/18/23 14:22> General Exam <Rosalba Booth - Last Filed: 11/18/23 14:22> <Tejas Avina - Last Filed: 11/18/23 19:10> - General Exam Comments Initial Comments: Visual Physical Exam Vital signs reviewed General: Well-appearing, nontoxic, no acute distress. Head: Normocephalic, atraumatic Eyes: PERRLA, EOMI ENT: Airway patent Chest: Nonlabored breathing Skin: No visual rash, normal skin tone Neuro: Alert and oriented 3 Musculoskeletal: No gross abnormalities (Rosalba Booth) PHYSICAL EXAM: General Impression: Alert and oriented x3 HEENT: Normocephalic atraumatic, extra-ocular movements intact, pupils equal and reactive to light bilaterally, mucous membranes moist. Cardiovascular: Heart regular rate and rhythm Chest: Able to complete full sentences, no retractions, no tachypnea Abdomen: abdomen soft, suprapubic tenderness, non-distended, no organomegaly Musculoskeletal: Pulses present and equal in all extremities, no peripheral edema Motor: no focal deficits noted Neurological: CN II-XII grossly intact, no focal motor or sensory deficits noted Skin: Intact with no visualized rashes Psych: Normal affect and mood (Tejas Avina) Course <Tejas Avina - Last Filed: 11/18/23 19:10> Vital Signs 11/18/23 14:53 Temperature 98.2 F Pulse Rate 71 Respiratory 20 Rate Blood Pressure 174/99 O2 Sat by Pulse 99 Oximetry - Reevaluation(s) Reevaluation #1: 11/18/23 19:08 Patient still having bloody output from his Manuel irrigation. Patient is uncomfortable. Disposition options were discussed with the patient. He would like to be transferred to [place] where his urologist is based out of. Patient care accepted for ER to ER transfer by Dr. Mccabe. (Tejas Avina) Medical Decision Making <Rosalba Booth - Last Filed: 11/18/23 14:22> <Tejas Avina - Last Filed: 11/18/23 19:10> - Medical Decision Making I performed the QuickNote portion of this chart. Signed Rosalba Booth PA-C. (Rosalba Booth) Was pt. sent in by a medical professional or institution ([facility]ARNELL Seo, [employer], urgent care, hospital, or halfway...) When possible be specific @ -No Did you speak to anyone other than the patient for history (EMS, parent, family, police, friend...)? What history was obtained from this source @ -No Did you review nursing and triage notes (agree or disagree)? Why? @ -I reviewed and agree with nursing and triage notes Were old charts reviewed (outside hosp., previous admission, EMS record, old EKG, old radiological studies, urgent care reports/EKG's, halfway records)? Report findings @ -No old charts were reviewed Differential Diagnosis (chest pain, altered mental status, abdominal pain women, abdominal pain men, vaginal bleeding, musculoskeletal, weakness, fever, dyspnea, syncope, headache, dizziness, GI bleed, back pain, seizure, CVA, palpatations, mental health)? @ -Differential Abdominal Pain Men: Appendicitis, cholecystitis, diverticulosis, ischemic bowel, pancreatitis, hepatitis, UTI, gastroenteritis, AAA, incarcerated hernia, bowel obstruction, constipation, inflammatory bowel, hepatitis, peptic ulcer disease, splenic infarction, perforated viscus, testicular torsion, this is not meant to be an all-inclusive list EKG interpreted by me (3pts min.). @ -None done X-rays interpreted by me (1pt min.). @ -None done CT interpreted by me (1pt min.). @ -None done U/S interpreted by me (1pt. min.). @ -None done What testing was considered but not performed or refused? (CT, X-rays, U/S, labs)? Why? @ -None What meds were considered but not given or refused? Why? @ -None Did you discuss the management of the patient with other professionals (professionals i.e. , PA, PARTS [employer]NER, lab, RT, psych nurse, executive secretary social welfare, quality assurance consultant, teacher, chief lifestyle officer, rehabilitation caseworker)? Give summary @ -No Was smoking cessation discussed for >3mins.? @ -No Was critical care preformed (if so, how long)? @ -No Were there social determinants of health that impacted care today? How? (Homelessness, low income, unemployed, alcoholism, drug addiction, transportation, low edu. Level, literacy, decrease access to med. care, group home, rehab)? @ -No Was there de-escalation of care discussed even if they declined (Discuss DNR or withdrawal of care, Hospice)? DNR status @ -No What co-morbidities impacted this encounter? (DM, HTN, Smoking, COPD, CAD, Cancer, CVA, ARF, Chemo, Hep., AIDS, mental health diagnosis, sleep apnea, morbid obesity)? @ -None Was patient admitted / discharged? Hospital course, mention meds given and route, prescriptions, significant lab abnormalities, going to OR and other pertinent info. @ -63-year-old male being transferred to [facility]. Initially presented for urinary retention and hematuria. Patient had bladder cancer removal performed by urologist at [place]. Patient having hematuria urinary retention. Manuel catheter was placed and immediately clogged due to blood clot. That Manuel catheter was removed another Manuel catheter was placed that was la rger in caliber. Clotted again and catheter was flushed. Finally 22 [place] three-way irrigating Maun[place] catheter was placed. There is concern that without irrigation patient's Manuel catheter was clogged again. Patient request transfer to [facility]. Undiagnosed new problem with uncertain prognosis? @ -No Drug Therapy requiring intensive monitoring for toxicity (Heparin, Nitro, Insulin, Cardizem)? @ -No Were any procedures done? @ -No Diagnosis/symptom? Acute, or Chronic, or Acute on Chronic? Uncomplicated (without systemic symptoms) or Complicated (systemic symptoms)? @ -Hematuria, urinary retention Side effects of treatment? @ -No Exacerbation, Progression, or Severe Exacerbation? @ -No Poses a threat to life or bodily function? How? (Chest pain, USA, LA, pneumonia, PE, COPD, DKA, ARF, appy, cholecystitis, CVA, Diverticulitis, Homicidal, Suicidal, threat to staff... and all critical care pts) @ -yes (Tejas Avina) - Lab Data Lab Results 11/18/23 Range/Units 16:30 Urine Color Dark Red Urine Appearance Bloody (Clear) Urine RBC >182 H (0-5) /hpf Urine WBC 46 H (0-5) /hpf Disposition <Rosalba Booth - Last Filed: 11/18/23 14:22> Time of Disposition: 19:10 - Out of Hospital Transfer - Req. Specs Out of Hospital Transfer - Requested Specifics: Other Emergency Center ([facility]) <Tejas Avina - Last Filed: 11/18/23 19:10> Clinical Impression: Urinary (tract) obstruction Disposition: OTHER INSTITUTION NOT DEFINED Condition: Fair Referrals: Max Doty MD [Primary Care Provider] - 1-2 days
[2023-11-18 15:00] VITALS: TEMP 98.2
[2023-11-18 16:49] LABS: Appearance,Urine Bloody (Clear); RBC,Urine >182 /hpf (0-5); WBC,Urine 46 /hpf (0-5)
[2023-11-18 16:50] LABS: Color,Urine Dark Red
[2023-11-18] MEDS: MORPHINE SULFATE 4 MG/ML SYRINGE IV STA (17:38)
[2023-11-18] MEDS: SODIUM CHLORIDE 0.9% IRRIGATIO 3,000 ML IRRIGATION SCH (18:13)
[2023-11-18] MEDS: HYDROmorphone 1 MG/ML 1 ML SYRINGE IVP STA ×2 (19:54→22:25)
[2023-11-18] MEDS: oxyBUTYnin chloride 5 MG TAB PO STA (21:48)
[2023-11-18 23:15] VITALS: BP 157/108; PULSE 78; RESP 20
== END 2023-11-18 22:41 | disposition other institution (70) ==
LOC: EC 14:15
DX: N13.8 Other obstructive and reflux uropathy (principal); Z85.51 Personal history of malignant neoplasm of bladder
CPT/HCPCS: 81001; 87086; 51702; 99285; 96374; 96375; 96376; J2270; J1170

== ENCOUNTER 2024-08-31 12:58 | Day surgery (SDC) | payer MEDICARE ==
[2024-08-29 15:23] VITALS: BMI 52.1
[~2024-08-31 12:58] MED LIST changes: -DEXAMETHASONE SOD PHOSPHATE 4 MG/ML 1 ML VIAL IV ONE; -HYDROmorphone 0.5 MG/0.5 ML SYRINGE IVP PRN; -LIDOCAINE 1% (10MG/ML) FOR IV START INTRADERMA PRN; -ONDANSETRON 4 MG/2 ML VIAL IVP ONE; -Pre Op ABX Message 1 EACH MISC MISCELLANE ONE
[2024-08-31 13:37] VITALS: TEMP 96.6
[2024-08-31] MEDS: LACTATED RINGERS 1,000 ML IV ONE (13:40)
[2024-08-31] MEDS ORDERED: PROPOFOL 10 MG/ML 20 ML VIAL IV ONE (15:18)
--- NOTE | 2024-08-31 15:40 | P.PCN ---
Date of Procedure: 08/31/24 Procedure(s) Performed: BRIEF HISTORY: Patient is a 64-year-old pleasant white male scheduled for an elective colonoscopy as a part of screening for colon cancer. PROCEDURE PERFORMED: Colonoscopy with snare polypectomy. PREOPERATIVE DIAGNOSIS: Screening for colon cancer. IV sedation per Anesthesia. PROCEDURE: After informed consent was obtained, the patient, was brought into the endoscopy unit. IV sedation was administered by Anesthesia under continuous monitoring. Digital rectal examination was normal. Initially the Olympus CF-160 flexible video colonoscope was then inserted in the rectum, gradually advanced into the cecum without any difficulty. Careful examination was performed as the scope was gradually being withdrawn. Ileocecal valve and the appendiceal orifice were visualized and appeared normal. Prep was excellent. Mucosa of the cecum, ascending colon appeared normal. The transverse colon there was a 5 mm polyp removed by cold snare polypectomy. In the sigmoid colon there was a 4 mm, 5 mm and a 7 mm polyp removed by cold snare polypectomy. Scattered left-sided diverticulosis seen. Rest of the, transverse colon, descending colon, sigmoid colon, and rectum appeared normal. Retroflexion was performed in the rectum and no lesions were seen. The patient tolerated the procedure well. IMPRESSION: 5 mm transverse colon polyp status post cold snare polypectomy 4 mm, 5 mm and 7 mm sigmoid colon polyp status post cold snare polypectomy Scattered sigmoid diverticulosis RECOMMENDATIONS: Findings of this examination were discussed with the patient as well as his family. He was advised to follow-up with the biopsy results. If the biopsy reveals adenoma he can have repeat colonoscopy in 3 years.
[2024-08-31 16:01] VITALS: BP 148/91; PULSE 54; RESP 16
== END 2024-08-31 16:18 | disposition home or self-care (01) ==
LOC: ORWHC2ENDO 12:58
PROVIDERS: ATTEND Internal Medicine Gastroenterology
DX: Z12.11 Encounter for screening for malignant neoplasm of colon (principal); D12.3 Benign neoplasm of transverse colon; D12.5 Benign neoplasm of sigmoid colon; K57.30 Diverticulosis of large intestine without perforation or abscess without bleeding; I10 Essential (primary) hypertension; K76.0 Fatty (change of) liver, not elsewhere classified; E66.01 Morbid (severe) obesity due to excess calories; Z85.51 Personal history of malignant neoplasm of bladder; Z79.82 Long term (current) use of aspirin; Z79.899 Other long term (current) drug therapy; Z68.43 Body mass index [BMI] 50.0-59.9, adult
CPT/HCPCS: 88305; 45385; J2704